=== PATIENT | male | born 1950 | race Caucasian/White ===

== ENCOUNTER 2016-08-12 14:40 | Emergency (ER) | payer BC ==
[2016-08-12 15:03] VITALS: BP 134/79
[2016-08-12] MEDS ORDERED: Levofloxacin/Dextrose 5%-Water 500 MG in Premix Bag 1 BAG IV ONE (15:18)
[2016-08-12] MEDS ORDERED: HYDROmorphone 0.5 MG/0.5 ML Syringe IVPUSH ONE (15:18)
[2016-08-12] MEDS ORDERED: Sodium Chloride 0.9% 10 ML Syringe FLUSH PRN ×2 (15:25→16:46)
[2016-08-12] MEDS ORDERED: HYDROmorphone 1 MG/ML Syringe IVPUSH ONE (15:27)
[2016-08-12] MEDS ORDERED: Sodium Chloride 0.9% 1,000 ML IV SCH (15:30)
[2016-08-12] MEDS ORDERED: Diatrizoate Meglumine/Diatrizoate Sodium 37% 120 ML Bottle PO ONE (16:46)
[2016-08-12] MEDS ORDERED: Iopamidol 612 MG/ML 150 ML Bottle IVPUSH ONE (16:46)
--- NOTE | 2016-08-12 17:03 | EDM.PDOC ---
ED HPI GENERAL MEDICAL PROBLEM - General Chief Complaint: Back Pain or Injury Stated Complaint: BACK PAIN Time Seen by Provider: 08/12/16 15:12 Source of Information: Reports: Patient History Limitations: Reports: No Limitations - History of Present Illness INITIAL COMMENTS - FREE TEXT/NARRATIVE: The patient presents with mid back pain. He has a bulging disk diagnosed 8 years ago. He saw the neurosurgeon Dr Brandon and he recommended conservative treatment and it helped until 1 week ago. He was fixing fence and he slipped and fell backward and hit his mid back. He has pain that is worse with movement. He has no numbness or weakness. He has no bowel or bladder problems. He also has some lower abdominal pain that comes and goes. It is worse on the left side. He has no fever, chills, cough, chest pain, shortness of breath, nausea, vomiting or diarrhea. He has had this abdominal pain before but it has never been worked up before. Onset: Sudden Duration: Week(s): (1) Location: Reports: Abdomen, Back (mid) Quality: Reports: Sharp Severity: Moderate Improves with: Reports: None Worsens with: Reports: Movement Context: Reports: Activity (He was fixing a fence) Associated Symptoms: Reports: No Other Symptoms Middle Back Pain Score (Numeric/FACES): 9 - Related Data Allergies Allergy/AdvReac Type Severity Reaction Status Date / Time No Known Allergies Allergy Verified 04/27/15 15:50 Home Meds: Home Meds Linagliptin [Tradjenta] 5 mg PO DAILY 04/15/14 [History] Olmesartan/Hydrochlorothiazide [Benicar HCT 20-12.5 MG] 1 tab PO DAILY 04/15/14 [History] metFORMIN [Glucophage] 1,000 mg PO DAILY 04/15/14 [History] Cyclobenzaprine [Flexeril] 10 mg PO TID PRN #20 tablet 08/12/16 [Rx] Fluticasone/Vilanterol [Breo Ellipta 100-25 MCG Inhalation Kit] 1 puff IH DAILY 08/12/16 [History] Hydrocodone/Acetaminophen [Hydrocodon-Acetaminophen 5-325] 1 - 2 each PO Q6HR PRN #20 tablet 08/12/16 [Rx] Past Medical History HEENT History: Reports: Sinusitis Cardiovascular History: Reports: Hypertension Respiratory History: Reports: Asthma Gastrointestinal History: Reports: GERD Musculoskeletal History: Reports: Back Pain, Chronic Endocrine/Metabolic History: Reports: Diabetes, Type II - Past Surgical History HEENT Surgical History: Reports: Eye Surgery Social & Family History - Family History Neurological: Reports: CVA Oncologic: Reports: Prostate - Tobacco Use Smoking Status *Q: Current Every Day Smoker Years of Tobacco use: 50 Packs/Tins Daily: 1 - Recreational Drug Use Recreational Drug Use: No ED ROS GENERAL - Review of Systems Review Of Systems: See Below Constitutional: Reports: No Symptoms HEENT: Reports: No Symptoms Respiratory: Reports: No Symptoms Cardiovascular: Reports: No Symptoms Endocrine: Reports: No Symptoms GI/Abdominal: Reports: Abdominal Pain. Denies: Diarrhea, Nausea, Vomiting : Reports: No Symptoms Musculoskeletal: Reports: Back Pain (Mid back) Skin: Reports: No Symptoms ED EXAM,LOWER BACK PAIN/INJURY - Physical Exam Exam: See Below Exam Limited By: No Limitations General Appearance: Alert, No Apparent Distress Ears: Normal External Exam Nose: Normal Inspection Head: Atraumatic, Normocephalic Neck: Normal Inspection Respiratory/Chest: No Respiratory Distress, Lungs Clear, Normal Breath Sounds Cardiovascular: Regular Rate, Rhythm, No Edema, No Murmur GI/Abdominal: Soft, No Organomegaly, No Mass, Tender (Mild to moderate to the left lower abdomen) Back Exam: Other (Mild pain upon palpation to the mid back) Extremities: Normal Inspection Neurological: No Motor/Sensory Deficits, Oriented x 3 Course - Vital Signs Last Recorded V/S: Last Vital Signs Temp 98 F 08/12/16 14:59 Pulse 71 08/12/16 14:59 Resp 16 08/12/16 14:59 BP 134/79 08/12/16 14:59 Pulse Ox 96 08/12/16 14:59 - Orders/Labs/Meds Orders: Active Orders 24 hr Category Date Time Status Peripheral IV Care [RC] . DIRECTED Care 08/12/16 15:26 Active Sodium Chloride 0.9% [Normal Saline] 1,000 ml Med 08/12/16 15:30 Active IV ASDIRECTED Sodium Chloride 0.9% [Saline Flush] Med 08/12/16 15:25 Active 10 ml FLUSH ASDIRECTED PRN Sodium Chloride 0.9% [Saline Flush] Med 08/12/16 16:46 Active 10 ml FLUSH ONETIME PRN Peripheral IV Insertion Adult [OM.PC] Stat Oth 08/12/16 15:25 Ordered Medication Orders Sodium Chloride (Normal Saline) 1,000 mls @ 125 mls/hr IV ASDIRECTED DAAY Last Admin: 08/12/16 15:55 Dose: 125 mls/hr Sodium Chloride (Saline Flush) 10 ml FLUSH ASDIRECTED PRN PRN Reason: Keep Vein Open Last Admin: 08/12/16 15:56 Dose: 10 ml Sodium Chloride (Saline Flush) 10 ml FLUSH ONETIME PRN PRN Reason: IV FLUSH Last Admin: 08/12/16 17:18 Dose: 10 ml Labs: Laboratory Tests 08/12/16 08/12/16 Range/Units 15:50 15:50 WBC 7.87 (4.23-9.07) K/mm3 RBC 5.23 (4.63-6.08) M/mm3 Hgb 15.5 (13.7-17.5) gm/L Hct 46.5 (40.1-51.0) % MCV 88.9 (79.0-92.2) fl MCH 29.6 (25.7-32.2) pg MCHC 33.3 (32.2-35.5) g/dl RDW Std Deviation 45.4 H (35.1-43.9) fL Plt Count 167 (163-337) K/mm3 MPV 9.9 (9.4-12.3) fl Neut % (Auto) 61.4 (34.0-67.9) % Lymph % (Auto) 24.7 (21.8-53.1) % [place] % (Auto) 9.3 (5.3-12.2) % Eos % (Auto) 3.7 (0.8-7.0) Baso % (Auto) 0.4 (0.1-1.2) % Neut # (Auto) 4.84 (1.78-5.38) K/mm3 Lymph # (Auto) 1.94 (1.32-3.57) K/mm3 [place] # (Auto) 0.73 (0.30-0.82) K/mm3 Eos # (Auto) 0.29 (0.04-0.54) K/mm3 Baso # (Auto) 0.03 (0.01-0.08) K/mm3 Sodium 138 (136-145) mEq/L Potassium 4.2 (3.5-5.1) mEq/L Chloride 102 (98-107) mEq/L Carbon Dioxide 27 (21-32) mEq/L Anion Gap 13.2 (5-15) BUN 17 (7-18) mg/dL Creatinine 1.1 (0.7-1.3) mg/dL Est Cr Clr Drug Dosing 74.46 mL/min Estimated GFR (MDRD) > 60 (>60) mL/min BUN/Creatinine Ratio 15.5 (14-18) Glucose 203 H (80-115) mg/dL Calcium 8.6 (8.5-10.1) mg/dL Total Bilirubin 0.5 (0.2-1.0) mg/dL AST 10 L (15-37) U/L ALT 16 (16-63) U/L Alkaline Phosphatase 87 (46-116) U/L Total Protein 7.5 (6.4-8.2) g/dl Albumin 3.8 (3.4-5.0) g/dl Globulin 3.7 gm/dL Albumin/Globulin Ratio 1.0 (1-2) Lipase 90 (73-393) U/L Meds: Medications Generic Name Dose Route Start Last Admin Trade Name Freq PRN Reason Stop Dose Admin Sodium Chloride 1,000 mls @ 125 mls/hr 08/12/16 15:30 08/12/16 15:55 Normal Saline IV 125 mls/hr ASDIRECTED DAYA Administration Sodium Chloride 10 ml 08/12/16 15:25 08/12/16 15:56 Saline Flush FLUSH 10 ml ASDIRECTED PRN Administration Keep Vein Open Sodium Chloride 10 ml 08/12/16 16:46 08/12/16 17:18 Saline Flush FLUSH 10 ml ONETIME PRN Administration IV FLUSH Discontinued Medications Generic Name Dose Route Start Last Admin Trade Name Freq PRN Reason Stop Dose Admin Diatrizoate Meglum/Diatrizoate Sod 90 ml 08/12/16 16:46 08/12/16 17:18 Gastrografin 37% PO 08/12/16 16:47 90 ml ONETIME ONE Administration Hydromorphone HCl 0.5 mg 08/12/16 15:18 08/12/16 15:23 Dilaudid IVPUSH 08/12/16 15:19 Not Given ONETIME ONE Hydromorphone HCl 1 mg 08/12/16 15:27 08/12/16 15:55 Dilaudid IVPUSH 08/12/16 15:28 1 mg ONETIME ONE Administration Levofloxacin/Dextrose 500 mg/ 100 mls @ 100 mls/hr 08/12/16 15:18 08/12/16 15 :23 Premix IV 08/12/16 16:17 Not Given ONETIME ONE Iopamidol 125 ml 08/12/16 16:46 08/12/16 17:17 Isovue-300 (61%) IVPUSH 08/12/16 16:47 125 ml ONETIME ONE Administration - Re-Assessments/Exams Free Text/Narrative Re-Assessment/Exam: 08/12/16 17:02 I ordered an IV NS, dilaudid 1mg IV, labs, CT of abdomen, pelvis, thoracic and lumbar spine. 08/12/16 18:18 His CBC and CMP look good except his blood sugar was a little high at 203. His lipase is normal. The CT of his lumbar and thoracic spine shows numerous compression deformities from T6 to S1. The patient knows about that. The CT of his abdomen and pelvis shows nothing acute. I will give him some flexeril and hydrocodone for his pain. Departure - Departure Time of Disposition: 18:20 Disposition: Home, Self-Care 01 Condition: good Clinical Impression: Abdominal pain Lumbar strain Qualifiers: Encounter type: initial encounter Qualified Code(s): S39.012A - Strain of muscle, fascia and tendon of lower back, initial encounter - Discharge Information Prescriptions: Hydrocodone/Acetaminophen [Hydrocodon-Acetaminophen 5-325] 1 - 2 each PO Q6HR PRN #20 tablet PRN Reason: Pain Cyclobenzaprine [Flexeril] 10 mg PO TID PRN #20 tablet PRN Reason: Pain Referrals: Sigrid Ellis PA [Primary Care Provider] - 1 Week Forms: ED Department Discharge Additional Instructions: Take the hydrocodone and flexeril as needed for pain. Use ice or heat which ever feels better. Follow up with Sigrid Petty in 1 week if not better. Please return if you are worse. - My Orders Last 24 Hours: My Active Orders 08/12/16 15:25 Sodium Chloride 0.9% [Saline Flush] 10 ml FLUSH ASDIRECTED PRN Peripheral IV Insertion Adult [OM.PC] Stat 08/12/16 15:26 Peripheral IV Care [RC] . DIRECTED 08/12/16 15:30 Sodium Chloride 0.9% [Normal Saline] 1,000 ml IV ASDIRECTED 08/12/16 16:46 Sodium Chloride 0.9% [Saline Flush] 10 ml FLUSH ONETIME PRN - Assessment/Plan Last 24 Hours: My Active Orders 08/12/16 15:25 Sodium Chloride 0.9% [Saline Flush] 10 ml FLUSH ASDIRECTED PRN Peripheral IV Insertion Adult [OM.PC] Stat 08/12/16 15:26 Peripheral IV Care [RC] . DIRECTED 08/12/16 15:30 Sodium Chloride 0.9% [Normal Saline] 1,000 ml IV ASDIRECTED 08/12/16 16:46 Sodium Chloride 0.9% [Saline Flush] 10 ml FLUSH ONETIME PRN
--- NOTE | 2016-08-12 17:58 | CT ---
CT thoracic spine Technique: Multiple axial sections through the thoracic spine are obtained. Reconstructed sagittal and coronal images were reviewed. Comparison: Previous CT chest study of 05/26/13 showing the thoracic spine on reconstructed sagittal images. Findings: Multiple compression deformities are seen from T6 inferiorly through S1. Minimal increased endplate concavities are seen within T10 with other findings are stable. No abnormal subluxation is seen. No bony central canal stenosis is seen. No bony neural foraminal stenosis is seen on the parasagittal images. Impression: 1. Numerous compression deformities throughout the lower thoracic and lumbar spine. These are stable with the exception of minimal increase concavity of T10 which is likely old. 2. No abnormal subluxation, bony central canal stenosis or neural foraminal stenosis is seen. Diagnostic code #3
--- NOTE | 2016-08-12 18:02 | CT ---
CT lumbar spine Technique: Multiple axial sections through the lumbar spine were obtained. Comparison: Previous lumbar spine MRI of 01/12/15. Findings: Compression deformities with endplate concavities are seen throughout the lumbar spine. These remain stable from previous exam. No acute fracture is seen. No bony central or bony neural foraminal stenosis is seen. No abnormal subluxation is seen. Impression: 1. Stable compression deformities throughout the lumbar spine. No significant change is identified from current CT lumbar spine to previous MRI lumbar spine of 01/12/15. Diagnostic code #3
--- NOTE | 2016-08-12 18:02 | CT ---
CT abdomen and pelvis Technique: Multiple axial sections were obtained from above the dome of the diaphragm inferiorly through the pubic symphysis. Intravenous and oral contrast was utilized. Comparison: Previous CT abdomen and pelvis study of 05/26/[address] abdomen and pelvis exam of 08/20/12. Findings: Small portion of the visualized lung bases are clear. Liver and spleen appears unremarkable. Right adrenal gland is unremarkable. Left adrenal gland is prominent in size which is a stable finding. Kidneys show symmetric contrast enhancement without hydronephrosis or mass. Small nodule is noted medial to the spleen and anterior to the spleen compatible with accessory splenic tissue which is stable. Previous cholecystectomy is noted. Aorta shows mild atherosclerotic change without aneurysmal dilatation. No retroperitoneal adenopathy is seen. No mesenteric abnormalities are seen. No pelvic mass or adenopathy is seen. Delayed images were obtained through the pelvis which shows contrast within the distal ureters and within the bladder. Appendix is seen which appears normal. No bowel dilatation is seen. No free fluid or inflammatory change is seen. Bone window settings were reviewed which shows numerous compression deformities throughout the spine which appear old. Incidental fat-containing umbilical hernia is noted. Impression: 1. Incidental findings as noted above. Nothing acute is appreciated on CT study of the abdomen and pelvis. Diagnostic code #2
== END 2016-08-12 18:30 | disposition home or self-care (01) ==
LOC: JD.ED 14:40
DX: S39.012A Strain of muscle, fascia and tendon of lower back, initial encounter (principal); I10 Essential (primary) hypertension; K21.9 Gastro-esophageal reflux disease without esophagitis; E11.9 Type 2 diabetes mellitus without complications; R10.32 Left lower quadrant pain; F17.210 Nicotine dependence, cigarettes, uncomplicated; Z79.899 Other long term (current) drug therapy; W01.10XA Fall on same level from slipping, tripping and stumbling with subsequent striking against unspecified object, initial encounter
CPT/HCPCS: 36415; 72128; 72131; 74177; 80053; 83690; 85025; 96361; 96374; 99284; J1170; J7040; J7050; Q9963; Q9967

== ENCOUNTER 2018-03-23 03:40 | Emergency (ER) | payer MEDICARE, BC ==
[2018-03-23 03:50] VITALS: BP 135/76
--- NOTE | 2018-03-23 04:14 | EDM.PDOC ---
ED HPI GENERAL MEDICAL PROBLEM - General Chief Complaint: Lower Extremity Injury/Pain Stated Complaint: RIGHT FOOT INJURY Time Seen by Provider: 03/23/18 03:45 Source of Information: Reports: Patient History Limitations: Reports: No Limitations - History of Present Illness INITIAL COMMENTS - FREE TEXT/NARRATIVE: The patient presents with right foot pain. He says he was walking in the snow yesterday and he stepped on a cow pie and inverted his ankle. He could walk on it after but last night he had more pain. He has no other injury. Onset: Sudden Duration: Day(s): (Yesterday) Location: Reports: Lower Extremity, Right (Foot) Quality: Reports: Sharp Severity: Moderate Improves with: Reports: Immobilization Worsens with: Reports: Movement Associated Symptoms: Reports: No Other Symptoms Right Feet Pain Score (Numeric/FACES): 1 - Related Data Allergies Allergy/AdvReac Type Severity Reaction Status Date / Time No Known Allergies Allergy Verified 04/27/15 15:50 Home Meds: Home Meds Olmesartan/Hydrochlorothiazide [Benicar HCT 20-12.5 MG] 1 tab PO DAILY 04/15/14 [History] metFORMIN [Glucophage] 1,000 mg PO DAILY 04/15/14 [History] Fluticasone/Vilanterol [Breo Ellipta 100-25 MCG Inhalation Kit] 1 puff IH DAILY 08/12/16 [History] Azithromycin [Zithromax] 250 mg PO DAILY 03/23/18 [History] Glimepiride [Amaryl] 1 mg PO DAILY 03/23/18 [History] Past Medical History HEENT History: Reports: Sinusitis Cardiovascular History: Reports: Hypertension Respiratory History: Reports: Asthma Gastrointestinal History: Reports: GERD Musculoskeletal History: Reports: Arthritis, Back Pain, Chronic Endocrine/Metabolic History: Reports: Diabetes, Type II - Past Surgical History HEENT Surgical History: Reports: Eye Surgery Social & Family History - Family History Family Medical History: Noncontributory Neurological: Reports: CVA Oncologic: Reports: Prostate - Tobacco Use Smoking Status *Q: Current Every Day Smoker Years of Tobacco use: 50 Packs/Tins Daily: 1.5 - Caffeine Use Caffeine Use: Reports: Coffee - Recreational Drug Use Recreational Drug Use: No Review of Systems - Review of Systems Review Of Systems: See Below Constitutional: Reports: No Symptoms Eyes: Reports: No Symptoms Ears: Reports: No Symptoms Nose: Reports: No Symptoms Mouth/Throat: Reports: No Symptoms Respiratory: Reports: No Symptoms Cardiovascular: Reports: No Symptoms GI/Abdominal: Reports: No Symptoms Genitourinary: Reports: No Symptoms Musculoskeletal: Reports: Other (Right foot pain) ED EXAM, GENERAL - Physical Exam Exam: See Below Exam Limited By: No Limitations General Appearance: Alert, No Apparent Distress Ears: Normal External Exam Nose: Normal Inspection Head: Atraumatic, Normocephalic Neck: Normal Inspection Respiratory/Chest: No Respiratory Distress Extremities: Other (Mild pain upon palpation to the right foot over the 5th metatarsal and lateral malleolus. Good sensaton and pulses distally.) Course - Vital Signs Last Recorded V/S: Last Vital Signs Temp 97.4 F 03/23/18 03:47 Pulse 84 03/23/18 03:47 Resp 18 03/23/18 03:47 BP 135/76 03/23/18 03:47 Pulse Ox 94 L 03/23/18 03:47 - Orders/Labs/Meds Orders: Active Orders 24 hr Category Date Time Status Ankle Min 3V Rt [CR] Stat Exams 03/23/18 04:22 Ordered Foot Comp Min 3V Rt [CR] Stat Exams 03/23/18 04:07 Stop Req - Re-Assessments/Exams Free Text/Narrative Re-Assessment/Exam: 03/23/18 04:23 The x-ray of his ankle looks good. I will get him a stirrup splint. Departure - Departure Time of Disposition: 16:30 Disposition: Still A Patient 30 Condition: Good Clinical Impression: Right ankle sprain Qualifiers: Encounter type: initial encounter Involved ligament of ankle: unspecified ligament Qualified Code(s): S93.401A - Sprain of unspecified ligament of right ankle, initial encounter - Discharge Information *PRESCRIPTION DRUG MONITORING PROGRAM REVIEWED*: No *COPY OF PRESCRIPTION DRUG MONITORING REPORT IN PATIENT ALEXIS: No Referrals: Max Morris PA-C [Primary Care Provider] - Forms: ED Department Discharge Additional Instructions: Ice your ankle for 15 minutes 3 times per day and elevate your ankle above your heart as much as you can for 2 days to reduce the swelling. Take motrin or tylenol for pain. Wear the splint for comfort. Please return if you are worse or follow up with your doctor. - My Orders Last 24 Hours: My Active Orders 03/23/18 04:07 Foot Comp Min 3V Rt [CR] Stat 03/23/18 04:22 Ankle Min 3V Rt [CR] Stat - Assessment/Plan Last 24 Hours: My Active Orders 03/23/18 04:07 Foot Comp Min 3V Rt [CR] Stat 03/23/18 04:22 Ankle Min 3V Rt [CR] Stat
--- NOTE | 2018-03-27 10:13 | CR ---
Right ankle: Four views of the right ankle were obtained. Comparison: No prior ankle exam. Ankle mortise is symmetric. Very minimal plantar spur is seen. Very minimal spur at the attachment of the Achilles tendon to the calcaneus is noted. Dystrophic calcifications are noted within the soft tissues of the anterior arnett. Small cortical avulsion fracture is noted off the lateral talus. No additional fracture or other abnormality is appreciated. Impression: 1. Small cortical avulsion fracture as noted above. 2. Other incidental findings. Diagnostic code #3 MTDD
== END 2018-03-23 04:30 | disposition home or self-care (01) ==
LOC: JD.ED 03:40
DX: S93.401A Sprain of unspecified ligament of right ankle, initial encounter (principal); F17.210 Nicotine dependence, cigarettes, uncomplicated; Z79.899 Other long term (current) drug therapy; Z79.84 Long term (current) use of oral hypoglycemic drugs; X50.1XXA Overexertion from prolonged static or awkward postures, initial encounter
CPT/HCPCS: 73610-RT; 73630-26-RT; 73630-RT; 99283

== ENCOUNTER 2019-09-22 20:58 | Emergency (ER) | payer MEDICARE, BC ==
[2019-09-22 21:30] VITALS: BP 130/83
--- NOTE | 2019-09-22 22:08 | EDM.PDOC ---
ED HPI GENERAL MEDICAL PROBLEM - General Chief Complaint: Back Pain or Injury Stated Complaint: back pain Time Seen by Provider: 09/22/19 22:01 - History of Present Illness INITIAL COMMENTS - FREE TEXT/NARRATIVE: 68-year-old male presents with right-sided rib pain. Yesterday the patient was baling hay and he had to get behind the tractor to move a lever and rather than walk around the [facility] he reached over the hitch of the [facility] to get to the lever. He felt a pop, but did okay. Today he was baling hay and developed some pain in his right lower chest and along the ribs he spent most the day looking backwards as he was baling hay. He has no new associated shortness of breath no calf tenderness. Right Chest Pain Score (Numeric/FACES): 10 - Related Data Allergies Allergy/AdvReac Type Severity Reaction Status Date / Time No Known Allergies Allergy Verified 04/27/15 15:50 Home Meds: Home Meds Olmesartan/Hydrochlorothiazide [Benicar HCT 20-12.5 MG] 1 tab PO DAILY 04/15/14 [History] metFORMIN [Glucophage] 1,000 mg PO DAILY 04/15/14 [History] Glimepiride [Amaryl] 1 mg PO DAILY 03/23/18 [History] Acetaminophen/HYDROcodone [[place] 325-7.5 MG] 1 - 2 tab PO Q6H PRN #15 tablet 10/17/18 [Rx] Gabapentin [Neurontin] 0 mg PO BEDTIME 10/17/18 [History] Albuterol Sulfate [Proventil Hfa] 2 puff INH ASDIRECTED 09/22/19 [History] Fluticasone/Umeclidin/Vilanter [Trelegy Ellipta 100-62.5-25] 1 puff INH DAILY 09/22/19 [History] Past Medical History HEENT History: Reports: Sinusitis Cardiovascular History: Reports: High Cholesterol, Hypertension Respiratory History: Reports: Asthma, COPD Gastrointestinal History: Reports: GERD Musculoskeletal History: Reports: Arthritis, Back Pain, Chronic Endocrine/Metabolic History: Reports: Diabetes, Type II Oncologic (Cancer) History: Reports: Other (See Below) Other Oncologic History: skin cancer to neck - Past Surgical History HEENT Surgical History: Reports: Eye Surgery GI Surgical History: Reports: Cholecystectomy Musculoskeletal Surgical History: Reports: Arthroscopic Procedure Social & Family History - Family History Family Medical History: Noncontributory Neurological: Reports: CVA Oncologic: Reports: Prostate - Tobacco Use Smoking Status *Q: Current Every Day Smoker Years of Tobacco use: 50 Packs/Tins Daily: 1 - Caffeine Use Caffeine Use: Reports: Coffee, Soda - Recreational Drug Use Recreational Drug Use: No ED ROS GENERAL - Review of Systems Review Of Systems: See Below Constitutional: Reports: No Symptoms, Weight Gain Respiratory: Denies: Shortness of Breath, Cough, Sputum Cardiovascular: Reports: Chest Pain, Other (Pleuritic-like right-sided chest pain) GI/Abdominal: Reports: No Symptoms Musculoskeletal: Reports: Other (Right sided rib pain) Skin: Reports: No Symptoms Neurological: Reports: No Symptoms ED EXAM,LOWER BACK PAIN/INJURY - Physical Exam Exam: See Below Exam Limited By: No Limitations General Appearance: Other (Lots of discomfort when trying to change positions) Head: Atraumatic, Normocephalic Neck: Normal Inspection, Supple, Non-Tender, Full Range of Motion. No: Lymphadenopathy (L), Lymphadenopathy (R) Respiratory/Chest: Other (Breath sounds are slightly diminished on the left albeit his pain is on the right. Palpation of the right chest is exquisitely tender lateral and inferior) Cardiovascular: Regular Rate, Rhythm, No Edema, No Murmur GI/Abdominal: Normal Bowel Sounds, Soft, Non-Tender EKG INTERPRETATION EKG Date: 09/22/19 Rhythm: Other (Sinus dysrhythmia) [place]: Normal P-Wave: Present QRS: Other (Borderline intraventricular conduction delay) ST-T: Normal QT: Normal Comparison: No Change (Change from EKG of April 2015) EKG Interpretation Comments: Borderline EKG Course - Vital Signs Last Recorded V/S: Last Vital Signs Temp 36.3 C 09/22/19 21:29 Pulse 63 09/22/19 23:55 Resp 22 H 09/22/19 23:55 BP 130/83 09/22/19 21:29 Pulse Ox 92 L 09/22/19 23:55 - Orders/Labs/Meds Orders: Active Orders 24 hr Category Date Time Status EKG Documentation Completion [RC] STAT Care 09/22/19 22:09 Active Chest 2V [CR] Stat Exams 09/22/19 22:08 Taken Labs: Laboratory Tests 06/09/22/19 09/22/19 Range/Units 22:25 22:25 22:25 WBC 7.91 (4.23-9.07) K/mm3 RBC 5.09 (4.63-6.08) M/mm3 Hgb 15 (13.7-17.5) gm/dl Hct 45.9 (40.1-51.0) % MCV 90.2 (79.0-92.2) fl MCH 29.5 (25.7-32.2) pg MCHC 32.7 (32.2-35.5) g/dl RDW Std Deviation 47.0 H (35.1-43.9) fL Plt Count 175 (163-337) K/mm3 MPV 10.2 (9.4-12.3) fl Neut % (Auto) 59.2 (34.0-67.9) % Lymph % (Auto) 27.8 (21.8-53.1) % [place] % (Auto) 8.5 (5.3-12.2) % Eos % (Auto) 3.8 (0.8-7.0) Baso % (Auto) 0.3 (0.1-1.2) % Neut # (Auto) 4.69 (1.78-5.38) K/mm3 Lymph # (Auto) 2.20 (1.32-3.57) K/mm3 [place] # (Auto) 0.67 (0.30-0.82) K/mm3 Eos # (Auto) 0.30 (0.04-0.54) K/mm3 Baso # (Auto) 0.02 (0.01-0.08) K/mm3 D-Dimer, Quantitative 0.42 (0.19-0.50) mg/L Sodium 140 (136-145) mEq/L Potassium 4.1 (3.5-5.1) mEq/L Chloride 104 (98-107) mEq/L Carbon Dioxide 28 (21-32) mEq/L Anion Gap 12.1 (5-15) BUN 22 H (7-18) mg/dL Creatinine 1.3 (0.7-1.3) mg/dL Est Cr Clr Drug Dosing 60.52 mL/min Estimated GFR (MDRD) 55 (>60) mL/min BUN/Creatinine Ratio 16.9 (14-18) Glucose 152 H (80-115) mg/dL Calcium 8.5 (8.5-10.1) mg/dL Total Bilirubin 0.5 (0.2-1.0) mg/dL AST 10 L (15-37) U/L ALT 15 L (16-63) U/L Alkaline Phosphatase 74 (46-116) U/L Troponin I < 0.017 (0.00-0.056) ng/mL Total Protein 7.2 (6.4-8.2) g/dl Albumin 3.6 (3.4-5.0) g/dl Globulin 3.6 gm/dL Albumin/Globulin Ratio 1.0 (1-2) Meds: Medications Discontinued Medications Generic Name Dose Route Start Last Admin Trade Name Faviola PRN Reason Stop Dose Admin Fentanyl 50 mcg 09/22/19 22:55 09/22/19 23:14 Sublimaze IVPUSH 09/22/19 22:56 50 mcg ONETIME ONE Administration - Re-Assessments/Exams Free Text/Narrative Re-Assessment/Exam: 09/22/19 23:45 Lab evaluation is unrevealing chest x-ray shows no acute changes. He probably pulled something in his chest wall when he reached for that lever. He is not a good candidate to be on nonsteroidal anti-inflammatory medications. The patient has done okay on hydrocodone in the past we will give him #20 out of the machine in the waiting room 1 every 6-8 hours as needed Departure - Departure Time of Disposition: 23:47 Disposition: Home, Self-Care 01 Clinical Impression: Chest wall muscle strain - Discharge Information Instructions: Muscle Strain, [id number] Referrals: Sammi Martinez, RIBB[facility] CUTTER [Primary Care Provider] - Forms: ED Department Discharge Additional Instructions: Return to the emergency room with any questions problems or worsening symptoms. Drink plenty of fluids. I have given you a prescription for the machine out in the waiting room they will dispense hydrocodone. #20. Take 1 every 6-8 hours as needed for pain. 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 Follow-up with your regular healthcare provider in 1 week if needed. Sepsis Event Note (ED) - Evaluation Sepsis Screening Result: No Definite Risk - Focused Exam Vital Signs: Vital Signs Temp Pulse Resp BP Pulse Ox 09/22/19 23:55 63 22 H 92 L 09/22/19 21:29 36.3 C 67 20 130/83 92 L - My Orders Last 24 Hours: My Active Orders 09/22/19 22:08 Chest 2V [CR] Stat 09/22/19 22:09 EKG Documentation Completion [RC] STAT - Assessment/Plan Last 24 Hours: My Active Orders 09/22/19 22:08 Chest 2V [CR] Stat 09/22/19 22:09 EKG Documentation Completion [RC] STAT
[2019-09-22] MEDS ORDERED: fentaNYL 100 MCG/2 ML SDV IVPUSH ONE (22:55)
[2019-09-23 00:10] VITALS: PULSE 63
--- NOTE | 2019-09-23 06:41 | CR ---
Chest: 2 views of the chest were obtained. Comparison: Prior chest x-ray of 10/17/18. Heart size is normal. Tortuous thoracic aorta is seen. Lungs are clear no acute parenchymal change. Bony structures shows mild compression deformities within the mid thoracic spine which are stable. Other compression deformities within the lower thoracic spine are noted which are also felt stable. Impression: 1. Findings as noted above. 2. No acute intrathoracic process is appreciated when compared to previous exam. Diagnostic code #2 This report was dictated in MDT
== END 2019-09-23 00:02 | disposition home or self-care (01) ==
LOC: JD.ED 20:58
DX: S29.011A Strain of muscle and tendon of front wall of thorax, initial encounter (principal); I49.9 Cardiac arrhythmia, unspecified; I10 Essential (primary) hypertension; J44.9 Chronic obstructive pulmonary disease, unspecified; E11.9 Type 2 diabetes mellitus without complications; F17.210 Nicotine dependence, cigarettes, uncomplicated; Z79.84 Long term (current) use of oral hypoglycemic drugs; Z79.899 Other long term (current) drug therapy; X58.XXXA Exposure to other specified factors, initial encounter
CPT/HCPCS: 36415; 71046; 80053; 84484; 85025; 85379; 93005; 96374; 99284; J3010

== ENCOUNTER 2020-02-23 10:37 | Emergency (ER) | payer MEDICARE, BC ==
[2020-02-23 11:11] VITALS: BP 104/77; PULSE 78
--- NOTE | 2020-02-23 11:13 | EDM.PDOC ---
ED HPI GENERAL MEDICAL PROBLEM - General Chief Complaint: Neurological Problem Stated Complaint: NUMBNESS TO RT SIDE OF FACE,EYE DROOPING X 3 DAYS Time Seen by Provider: 02/23/20 10:55 Source of Information: Reports: Patient History Limitations: Reports: No Limitations - History of Present Illness INITIAL COMMENTS - FREE TEXT/NARRATIVE: 69-year-old male presents to the ED with left hemifacial numbness and tingling with inability to close his left eye completely and appreciates that his lips on the left side of his face are not working properly. He will intermittently bite his lower lip or inside cheek the last couple of days. He believes symptoms started gradually on Sunday, February 19. Appreciated that he was unable to close his eye yesterday. Appreciates numbness left lip when he tries to hold a cigarette it will not work on the left side. It works normally on the right side. He appreciates no weakness in his upper extremities and is able to walk okay. He does have an increased tinnitus in both sides of his head at this time. 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 Denies any headache or sharp stabbing scalp pain. Of note the patient is a type II diabetic does not check his sugars often. He has hypertension. He has COPD with dyspnea on minimal exertion. Continues to smoke a pack of cigarettes daily. Chronic cough occasionally productive of brown phlegm. Onset: Gradual Onset Date: 02/20/20 (Thinks he felt a little numbness left hemiface Sunday p.m.) Duration: Day(s):, Getting Worse Location: Reports: Face (Left hemifacial weakness numbness and tingling and inability to close his left eye x2 days) Quality: Reports: Other Severity: Moderate (Left hemifacial weakness) Improves with: Reports: None Worsens with: Reports: None Context: Reports: Other (Spontaneous occurrence over the last 48). Denies: Activity, Exercise, Lifting, Sick Contact, Trauma Associated Symptoms: Reports: Cough, cough w sputum (On a cough due to chronic bronchitis from cigarette smoking), Malaise, Shortness of Breath, Weakness (Left hemifacial muscles particularly periocular and periorbital.). Denies: Confusion ( to 72 hours.), Chest Pain, Diaphoresis, Fever/Chills, Headaches, Loss of Appetite, Nausea/Vomiting (Chronically and worse with minimal exertion.), Seizure, Syncope Treatments CASHIER RECEPTIONIST: Reports: Other (see below) (None.) - Related Data Allergies Allergy/AdvReac Type Severity Reaction Status Date / Time No Known Allergies Allergy Verified 04/27/15 15:50 Home Meds: Home Meds Olmesartan/Hydrochlorothiazide [Benicar HCT 20-12.5 MG] 1 tab PO DAILY 04/15/14 [History] metFORMIN [Glucophage] 1,000 mg PO DAILY 04/15/14 [History] Glimepiride [Amaryl] 1 mg PO DAILY 03/23/18 [History] Acetaminophen/HYDROcodone [[place] 325-7.5 MG] 1 - 2 tab PO Q6H PRN #15 tablet 10/17/18 [Rx] Gabapentin [Neurontin] 0 mg PO BEDTIME 10/17/18 [History] Albuterol Sulfate [Proventil Hfa] 2 puff INH ASDIRECTED 09/22/19 [History] Fluticasone/Umeclidin/Vilanter [Trelegy Ellipta 100-62.5-25] 1 puff INH DAILY 09/22/19 [History] Mineral Oil/Petrolatum Oint [Lacri-Lube S.O.P Oint] 3.5 gm .XX BEDTIME #1 tube 02/23/20 [Rx] predniSONE [Prednisone] 20 mg PO BID #6 tablet 02/23/20 [Rx] valACYclovir [Valtrex] 1,000 mg PO TID #21 tab 02/23/20 [Rx] Past Medical History HEENT History: Reports: Sinusitis Cardiovascular History: Reports: High Cholesterol, Hypertension Respiratory History: Reports: Asthma, COPD Gastrointestinal History: Reports: GERD Musculoskeletal History: Reports: Arthritis, Back Pain, Chronic Neurological History: Reports: Neuropathy, Peripheral (Quite bad in both lower extremities up to mid tib-fib. Reports he is on gabapentin but is no longer helping. He is not sure of the dose that he is taking.) Endocrine/Metabolic History: Reports: Diabetes, Type II (Patient takes Metformin and glyburide for type 2 diabetes.) Oncologic (Cancer) History: Reports: Other (See Below) Other Oncologic History: skin cancer to neck - Past Surgical History HEENT Surgical History: Reports: Eye Surgery GI Surgical History: Reports: Cholecystectomy Musculoskeletal Surgical History: Reports: Arthroscopic Procedure Social & Family History - Family History Family Medical History: No Pertinent Family History Neurological: Reports: CVA Oncologic: Reports: Prostate - Caffeine Use Caffeine Use: Reports: Coffee, Soda - Living Situation & Occupation Living situation: Reports: Occupation: Employed (Self-employed [employer].) ED ROS GENERAL - Review of Systems Review Of Systems: See Below Constitutional: Reports: Malaise, Weakness, Fatigue. Denies: Fever, Chills, Decreased Appetite, Weight Loss HEENT: Reports: Glasses, Other (Left eye weakness with inability to close left eye completely) Respiratory: Reports: Shortness of Breath ( developing over the last 48 hours), Wheezing, Cough (Productive cough), Sputum ( chronic bronchitis from cigarette smoking. Occasional brown). Denies: Pleuritic Chest Pain, Hemoptysis ( sputum.) Cardiovascular: Reports: Blood Pressure Problem, Dyspnea on Exertion, Edema. Denies: Claudication, Lightheadedness, Orthopnea, Palpitations (Chronically due to COPD.) Endocrine: Reports: Fatigue (Mild both lower extremities), Other (Known type II diabetic.) GI/Abdominal: Denies: Abdominal Pain, Anorexia, Decreased Appetite : Reports: Frequency, Other (Nocturia usually x3. Known BPH.) Musculoskeletal: Reports: Neck Pain, Shoulder Pain, Back Pain, Joint Pain Skin: Reports: No Symptoms (Knees and hips as well.) Neurological: Reports: Paresthesia (Chronic paresthesias both lower extremities from diabetes and peripheral vascular disease.) Psychiatric: Reports: No Symptoms Hematologic/Lymphatic: Reports: No Symptoms Immunologic: Reports: No Symptoms ED EXAM, NEURO - Physical Exam Exam: See Below Exam Limited By: No Limitations General Appearance: Alert, WD/WN, Anxious, Mild Distress, Other (Does have left hemifacial weakness and inability to close his left eye. He does have ptosis of his left upper eyelid. Temperature is 36.7 with a heart rate of 78 in sinus respiratory of 16 BP 104/77 O2 sats 93% room air.) Eye Exam: Bilateral Eye: PERRL (Normal. No evidence of intraocular muscle palsy.), Other (Patient has ptosis of his left upper eyelid and inability to close the left eye completely.) Ears: Normal TMs Throat/Mouth: Other (Ovular is in the midline. Diffuse erythema of the) Head Exam: Atraumatic ( soft palate and posterior oropharynx from cigarette smoking. No signs of infection.), Normocephalic Neck: Limited Range of Motion (But is with lateral rotation. Loss of 5 degrees flexion and extension). No: Supple, Full Range of Motion ( bilaterally.), Car otid Bruit, Lymphadenopathy (L), Lymphadenopathy (R), Thyromegaly Respiratory/Chest: Decreased Breath Sounds (Bilateral expiratory wheezes. Decreased air entry to the lower 50% of lung graham bilaterally.), Wheezing. No: Lungs Clear, Normal Breath Sounds ( Known to have COPD.), Chest Non-Tender Cardiovascular: Regular Rate, Rhythm, No Gallop, No Murmur, No Rub, Other (Patient has). No: Normal Peripheral Pulses GI/Abdominal: Normal Bowel Sounds ( poor pulses to both feet complete with peripheral vascular disease.), Soft, Non-Tender, No Organomegaly, No Mass, Pelvis Stable, Other (Moderately obese. Abdominal girth limits ability to palpate solid organs. No organomegaly noted.) Neurological: Alert, Normal Mood/Affect, Normal Dorsiflexion, Oriented x 3, Other (Patient has left facial weakness and numbness particular the facial cheek. He has inability to close his left eye completely and face pulls to the right on attempt to smile. Patient has no deficit in motor power tone in upper or lower extremities. No pronator drift. Normal [id number] evaluation normal [id number] evaluation. Normal rapid alternating movements.). No: CN II-XII Intact, Normal Gait, Normal Reflexes DTR: 0: Patella (R), Patella (L), Achilles (R), Achilles (L), 1+: Bicep (R), Bicep (L) Back Exam: Normal Inspection, Full Range of Motion. No: CVA Tenderness (L), CVA Tenderness (R) Extremities: Normal Inspection, Pedal Edema (Patient has 1-2+ pitting edema both lower extremities.) Psychiatric: Flat Affect Skin Exam: Warm, Dry, Intact, Normal Color, No Rash Course - Vital Signs Last Recorded V/S: Last Vital Signs Temp 36.7 C 02/23/20 11:05 Pulse 78 02/23/20 11:05 Resp 16 02/23/20 11:05 BP 104/77 02/23/20 11:05 Pulse Ox 93 L 02/23/20 11:05 - Radiology Interpretation Free Text/Narrative:: 69-year-old male presents to the ED with obvious left facial hemiparesis with particular inability to close his left eye and left sided ptosis. Face post to the right on attempt to smile. He has no other cranial nerve deficit and remainder of his neuro exam is completely normal other than chronic peripheral neuropathy both lower extremities associate with peripheral vascular disease clinically. He has a chronic neuropathy in both lower extremities which is worse as of late not responding to current dose of gabapentin. 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 Likely started 2-1/2 days ago. He is a type II diabetic putting him at high risk of eminent left 7th nerve palsy. Advised follow-up with his primary care provider in 7 days time Departure - Departure Time of Disposition: 11:05 Disposition: Home, Self-Care 01 Condition: Fair Clinical Impression: Ingram's palsy, Hypertension Type 2 diabetes mellitus Qualifiers: Diabetes mellitus group home insulin use: without manager long term care use Diabetes mellitus complication status: with circulatory complication - Discharge Information *PRESCRIPTION DRUG MONITORING PROGRAM REVIEWED*: Not Applicable *COPY OF PRESCRIPTION DRUG MONITORING REPORT IN PATIENT ALEXIS: Not Applicable Prescriptions: Mineral Oil/Petrolatum Oint [Lacri-Lube S.O.P Oint] 3.5 gm .XX BEDTIME #1 tube predniSONE [Prednisone] 20 mg PO BID #6 tablet valACYclovir [Valtrex] 1,000 mg PO TID #21 tab Instructions: Ingram Palsy, Adult Referrals: Sammi Martinez [employer] G[employer] PRESS OPERATOR [Primary Care Provider] - Forms: ED Department Discharge Additional Instructions: Evaluation in the emergency room today in regards to development of left hemifacial weakness of the muscles that supply opening closer of your left eye and the muscles around the mouth which controlled lip movement. Examination does not reveal any other signs of a stroke. You have a 7th cranial nerve palsy which is called Ingram's palsy. This is almost always caused by a viral infection usually herpes 6 or herpes 9 virus. Treatment is antiviral medication valacy clovir 1 g 3 times daily for the next week with steroid prednisone 20 mg twice daily morning and supper for the next 7 days to reduce swelling around the 7th cranial nerve. The most important thing is to keep the left eye moist when you cannot close it all the way. Suggest artificial tears 2 drops 3 times a day in the left eye. Left eye will have to be padded closed with an eyepad overnight until you regain function of the muscles around the eye and can close it normally. Place a small string of Lacri-Lube ointment along the inner lower eyelid every night at bedtime to help keep the left eye lubricated overnight to prevent drying out of the cornea which if occurs can cause an infection and loss of eyesight. Suggest follow-up with your personal care physician in 1 week time for reevaluation of Ingram's palsy. Blood sugars will become elevated while taking prednisone tablets but will return to baseline 2 to 3 days after you are finished the prednisone. Check on dose of gabapentin that you are taking at bedtime for neuropathy in your feet. If you are currently taking 100 mg tablet you may increase this to a 300 mg tablet at bedtime. Currently on a 300 mg tablet may take 600 mg at bedtime. Should discuss this with your personal care physician. Sepsis Event Note (ED) - Focused Exam Vital Signs: Vital Signs Temp Pulse Resp BP Pulse Ox 02/23/20 11:05 36.7 C 78 16 104/77 93 L
== END 2020-02-23 11:45 | disposition home or self-care (01) ==
LOC: JD.ED 10:37
DX: G51.0 Bell's palsy (principal); I10 Essential (primary) hypertension; J44.9 Chronic obstructive pulmonary disease, unspecified; E11.42 Type 2 diabetes mellitus with diabetic polyneuropathy; Z79.84 Long term (current) use of oral hypoglycemic drugs; Z79.899 Other long term (current) drug therapy
CPT/HCPCS: 99283; 99284

== ENCOUNTER 2020-03-06 23:06 | Emergency (ER) | payer MEDICARE, BC ==
[2020-03-06] MEDS ORDERED: Alum Hydrox/Mag Hydrox/Simeth 30 ML, Lidocaine 2% 15 ML PO STA ×2 (23:44)
--- NOTE | 2020-03-06 23:49 | EDM.PDOC ---
ED HPI GENERAL MEDICAL PROBLEM - General Chief Complaint: Chest Pain Stated Complaint: chest pains since 10pm Time Seen by Provider: 03/06/20 23:29 Source of Information: Reports: Patient History Limitations: Reports: No Limitations - History of Present Illness INITIAL COMMENTS - FREE TEXT/NARRATIVE: Mr. Blanco is a pleasant 69-year-old gentleman who now presents to the ED with a complaint of lower retrosternal chest pain, crampy in character, a pain, not a discomfort, lungs with bilateral mandible soreness and a headache felt all over his head, that all developed around 22:00 tonight while he was lying in bed. He has not identified any modifiers to his symptoms, although he states that they have since improved significantly - he states that he now has only mild chest discomfort. He states that he took some Rolaids that he does not feel helped. He states that he chronically has dyspnea due to COPD, that is unchanged. No associated nausea, diaphoresis, or sense of impending doom. The patient states that he has had similar symptoms 3 or 4 times over the past several years. He states that prior ED work-ups were negative, and that he was told that his symptoms were due to GERD. He states that he previously was on a daily PPI, but that he discontinued it about 2 years ago, because he was feeling fine. Here in the ED, the patient is found to be hemodynamically stable, afebrile, saturating 92% on room air. Prior to tonight, the patient denies having a recent fever, chills, sore throat, ear pain, nasal or sinus congestion, cough, dyspnea, chest pain, palpitations, nausea, vomiting, constipation, diarrhea, abdominal pain, urinary symptoms, recent weight gain or weight loss, recent bloody bowel movements or black bowel movements, recent joint aches, headaches, or rashes. The patient's PCP is Sammi Martinez NP. He has not received an influenza vaccine this season, and [facility]. Middle Chest Pain Score (Numeric/FACES): 5 - Related Data Allergies Allergy/AdvReac Type Severity Reaction Status Date / Time No Known Allergies Allergy Verified 03/06/20 23:16 Home Meds: Home Meds Olmesartan/Hydrochlorothiazide [Benicar HCT 20-12.5 MG] 1 tab PO DAILY 04/15/14 [History] metFORMIN [Glucophage] 1,000 mg PO DAILY 04/15/14 [History] Glimepiride [Amaryl] 1 mg PO DAILY 03/23/18 [History] Gabapentin [Neurontin] 0 mg PO BEDTIME 10/17/18 [History] Albuterol Sulfate [Proventil Hfa] 2 puff INH ASDIRECTED 09/22/19 [History] Fluticasone/Umeclidin/Vilanter [Trelegy Ellipta 100-62.5-25] 1 puff INH DAILY 09/22/19 [History] Rosuvastatin [Crestor] 10 mg PO BEDTIME 03/06/20 [History] Past Medical History Cardiovascular History: Reports: High Cholesterol, Hypertension Respiratory History: Reports: Asthma (suspected, not tested), COPD (suspected, not tested) Gastrointestinal History: Reports: GERD (untreated) Musculoskeletal History: Reports: Arthritis Neurological History: Reports: Neuropathy, Diabetic Endocrine/Metabolic History: Reports: Diabetes, Type II Oncologic (Cancer) History: Reports: Other (See Below) (Skin cancer, left neck, s/p excision) - Past Surgical History HEENT Surgical History: Reports: Tonsillectomy GI Surgical History: Reports: Cholecystectomy (around 2017) Musculoskeletal Surgical History: Reports: Arthroscopic Procedure (right knee) Oncologic Surgical History: Reports: Other (See Below) (Skin cancer excised from left neck) Social & Family History - Tobacco Use Tobacco Use Status *Q: Current Every Day Tobacco User Years of Tobacco use: 51 Packs/Tins Daily: 1 - Caffeine Use Caffeine Use: Reports: None - Alcohol Use Alcohol Use History: Yes Alcohol Use Frequency: Rarely - Recreational Drug Use Recreational Drug Use: No - Living Situation & Occupation Living situation: Reports: , with Spouse, with Family (1 kid) Occupation: Employed (Part-time [employer]) ED ROS GENERAL - Review of Systems Review Of Systems: Comprehensive ROS is negative, except as noted in HPI. ED EXAM, GENERAL - Physical Exam Exam: See Below Exam Limited By: No Limitations General Appearance: Alert, WD/WN, No Apparent Distress Eye Exam: Bilateral Eye: EOMI, Normal Inspection Ears: Normal External Exam, Hearing Grossly Normal Nose: Normal Inspection Throat/Mouth: Normal Inspection, Normal Lips, Normal Voice, No Airway Compromise Head: Atraumatic, Normocephalic Neck: Normal Inspection, Full Range of Motion Respiratory/Chest: No Respiratory Distress, Lungs Clear, Normal Breath Sounds, No Accessory Muscle Use, Chest Non-Tender (including the sternum) Cardiovascular: Normal Peripheral Pulses, Regular Rate, Rhythm, No Gallop, No JVD, No Murmur, No Rub Peripheral Pulses: 3+: Radial (L), Radial (R) GI/Abdominal: Normal Bowel Sounds, Soft, Non-Tender (including the epigastrium), No Organomegaly, No Distention, No Abnormal Bruit, No Mass Back Exam: Normal Inspection, Full Range of Motion, NT Extremities: Normal Inspection, Normal Range of Motion, No Pedal Edema, Normal Capillary Refill Neurological: Alert, Oriented, Normal Cognition, No Motor/Sensory Deficits Psychiatric: Normal Affect Skin Exam: Warm, Dry, Intact, Normal Color, No Rash #1 Interpretation EKG Date: 03/06/20 Time: 23:18 Rhythm: NSR Rate (Beats/Min): 70 [place]: Normal P-Wave: Present QRS: Normal ST-T: Normal QT: Normal Comparison: No Change (09/22/2019) Course - Vital Signs Last Recorded V/S: Last Vital Signs Temp 36.4 C 03/06/20 23:14 Pulse 71 03/06/20 23:14 Resp 18 03/06/20 23:14 BP 131/80 03/06/20 23:14 Pulse Ox 92 L 03/06/20 23:14 - Orders/Labs/Meds Orders: Active Orders 24 hr Category Date Time Status EKG 12 Lead [EKG Documentation Completion] [RC] STAT Care 03/06/20 23:19 Active Chest 2V [CR] Stat Exams 03/06/20 23:44 Ordered Labs: Laboratory Tests 03/06/20 03/06/20 Range/Units 23:20 23:20 WBC 10.27 H (4.23-9.07) K/mm3 RBC 5.28 (4.63-6.08) M/mm3 Hgb 15.6 (13.7-17.5) gm/dl Hct 47.7 (40.1-51.0) % MCV 90.3 (79.0-92.2) fl MCH 29.5 (25.7-32.2) pg MCHC 32.7 (32.2-35.5) g/dl RDW Std Deviation 48.3 H (35.1-43.9) fL Plt Count 187 (163-337) K/mm3 MPV 10.2 (9.4-12.3) fl Neutrophils % (Manual) 65 H (40-60) % Band Neutrophils % 0 (0-10) % Lymphocytes % (Manual) 22 (20-40) % Atypical Lymphs % 0 % Monocytes % (Manual) 10 (2-10) % Eosinophils % (Manual) 3 (0.8-7.0) % Basophils % (Manual) 0 L (0.2-1.2) Platelet Estimate Adequate RBC Morph Comment Normal Sodium 136 (136-145) mEq/L Potassium 4.3 (3.5-5.1) mEq/L Chloride 101 (98-107) mEq/L Carbon Dioxide 30 (21-32) mEq/L Anion Gap 9.3 (5-15) BUN 21 H (7-18) mg/dL Creatinine 1.6 H (0.7-1.3) mg/dL Est Cr Clr Drug Dosing 48.50 mL/min Estimated GFR (MDRD) 43 (>60) mL/min BUN/Creatinine Ratio 13.1 L (14-18) Glucose 154 H (80-115) mg/dL Calcium 9.2 (8.5-10.1) mg/dL Magnesium 2.3 (1.8-2.4) mg/dl Total Bilirubin 0.5 (0.2-1.0) mg/dL AST 14 L (15-37) U/L ALT 18 (16-63) U/L Alkaline Phosphatase 87 (46-116) U/L Troponin I < 0.017 (0.00-0.056) ng/mL Total Protein 7.3 (6.4-8.2) g/dl Albumin 3.5 (3.4-5.0) g/dl Globulin 3.8 gm/dL Albumin/Globulin Ratio 0.9 L (1-2) Meds: Medications Discontinued Medications Generic Name Dose Route Start Last Admin Trade Name Freq PRN Reason Stop Dose Admin Al Hydroxide/Mg Hydroxide 30 0 ml 03/06/20 23:44 03/06/20 23:51 ml/ Lidocaine HCl 15 ml PO 03/06/20 23:45 45 ml ONETIME STA Administration - Re-Assessments/Exams Free Text/Narrative Re-Assessment/Exam: 03/06/20 23:46 Like previous presentations with the same symptoms, hansel's symptoms are likely due to GERD, therefore I have ordered a GI cocktail to see if that improves his current minor symptoms. His ECG, obtained at triage, is unremarkable. I have ordered a work-up that includes several blood tests and a chest x-ray. 03/07/20 00:27 The patient's CBC is remarkable for WBC count slightly elevated at 10.27, but with 0% bandemia, and the remainder of his CBC is unremarkable. His CMP is remarkable for a BUN/Cr elevated at 21/1.6, and a blood glucose elevated at 154, with the remainder of his CMP being unremarkable. His magnesium level is within normal limits at 2.3. His troponin is undetectably low. His chest x-ray has not yet been obtained. Reviewing prior labs, I see that his BUN/Cr was within normal limits at 14/1.2 on 10/21/2019. 03/07/20 01:36 Two-view chest radiograph appears to be grossly normal. The cardiac silhouette is within normal limits. No pulmonary vascular congestion. No pleural effusions. No focal infiltrate. No pneumothorax. Formal read per the Radiologist pending. 03/07/20 01:39 Test results discussed with the patient. He states that the last of his pain resolved after he drank the GI cocktail. It has not recurred. I suspect that his pain, like previous presentations, is due to GERD, and I am therefore ordering 40 mg of IV famotidine with the recommendation that he begin taking 1 tablet of famotidine twice a day, going forward. Work-up finds that he has renal insufficiency, new from since 10/21/2019. I explained that it may be due to his diabetes, although there are other possible causes. I would like him to follow-up with his PCP in this regard. Departure - Departure Time of Disposition: 01:41 Disposition: Home, Self-Care 01 Clinical Impression: Renal insufficiency, GERD (gastroesophageal reflux disease) - Discharge Information *PRESCRIPTION DRUG MONITORING PROGRAM REVIEWED*: Not Applicable *COPY OF PRESCRIPTION DRUG MONITORING REPORT IN PATIENT ALEXIS: Not Applicable Referrals: Sammi Martinez, DECONTAMINATION WORKER [Primary Care Provider] - Forms: ED Department Discharge Additional Instructions: You were seen in the emergency room after developing lower chest pain, along with a sore jaw and headache. Work-up in the ER included several blood tests, a chest x-ray, and an ECG. Your blood work found your kidney function to be paired. It was normal on 10/21/2019. The remainder of your work-up was unremarkable. You have not suffered a heart attack. Your chest pain resolved completely after you drink a GI cocktail. Based on your history, physical exam, and ER tests, the cause of your symptoms was due to untreated GERD. We recommend that you take 1 tablet of [id number] famotidine (Pepcid) twice a day, indefinitely. We recommend that you follow-up with your PCP, Monika Martinez NP, for further evaluation of your impaired kidney function. If any other problems, please do not hesitate to return to the ER. Sepsis Event Note (ED) - Evaluation Sepsis Screening Result: No Definite Risk - Focused Exam Vital Signs: Vital Signs Temp Pulse Resp BP Pulse Ox 03/06/20 23:14 36.4 C 71 18 131/80 92 L - My Orders Last 24 Hours: My Active Orders 03/06/20 23:19 EKG 12 Lead [EKG Documentation Completion] [RC] STAT 03/06/20 23:44 Chest 2V [CR] Stat - Assessment/Plan Last 24 Hours: My Active Orders 03/06/20 23:19 EKG 12 Lead [EKG Documentation Completion] [RC] STAT 03/06/20 23:44 Chest 2V [CR] Stat
[2020-03-07] MEDS ORDERED: Famotidine 20 MG/2 ML SDV IVPUSH STA (01:39)
[2020-03-07 02:04] VITALS: BP 134/80; PULSE 79
--- NOTE | 2020-03-08 10:56 | CR ---
Chest: 2 views of the chest were obtained. Comparison: No prior chest imaging is available. Heart size is normal. Tortuous thoracic aorta is seen. Very small nodule is noted within left base of the left hemidiaphragm. Lungs otherwise are clear with no acute parenchymal change. Multiple compression deformities are seen within the spine. These involve both thoracic and lumbar spine. No abnormal subluxation is seen. Impression: 1. Small nodule within the left lung base most likely related to overlapping lung markings. 2. Compression deformities within the thoracic and lumbar spine. These are most likely old but please correlate with the patient's symptoms. 3. Nothing acute is otherwise seen. Diagnostic code #3 I agree with preliminary report from [facility], finalized on 03/07/20, 2:39 AM CENTERLESS GRINDER OPERATOR DANELLE
== END 2020-03-07 02:05 | disposition home or self-care (01) ==
LOC: JD.ED 23:06
DX: K21.9 Gastro-esophageal reflux disease without esophagitis (principal); N28.9 Disorder of kidney and ureter, unspecified; I10 Essential (primary) hypertension; E78.00 Pure hypercholesterolemia, unspecified; E11.40 Type 2 diabetes mellitus with diabetic neuropathy, unspecified; F17.210 Nicotine dependence, cigarettes, uncomplicated; Z79.84 Long term (current) use of oral hypoglycemic drugs; Z90.49 Acquired absence of other specified parts of digestive tract; Z79.899 Other long term (current) drug therapy
CPT/HCPCS: 36415; 71046; 80053; 83735; 84484; 85007; 85027; 93005; 96374; 99285; A9270; J3490; 93010; 99284

== ENCOUNTER 2021-09-18 01:43 | Emergency (ER) | payer MEDICARE, BC ==
[2021-09-18 02:07] VITALS: BP 121/80; PULSE 71
[2021-09-18] MEDS ORDERED: Acetaminophen/HYDROcodone 325-5 MG Tab PO ONE (02:55)
[2021-09-18] MEDS ORDERED: Orphenadrine 100 MG Tab.ER PO STA (02:55)
== END 2021-09-18 04:05 | disposition home or self-care (01) ==
LOC: JD.ED 01:43
DX: M54.6 Pain in thoracic spine (principal); E78.00 Pure hypercholesterolemia, unspecified; I10 Essential (primary) hypertension; K21.9 Gastro-esophageal reflux disease without esophagitis; J44.9 Chronic obstructive pulmonary disease, unspecified; E11.9 Type 2 diabetes mellitus without complications; E66.9 Obesity, unspecified; F17.210 Nicotine dependence, cigarettes, uncomplicated; Z68.32 Body mass index [BMI] 32.0-32.9, adult; Z79.899 Other long term (current) drug therapy; Z79.84 Long term (current) use of oral hypoglycemic drugs
CPT/HCPCS: 72070; 99283; A9270; 99284

== ENCOUNTER 2022-03-17 23:24 | Emergency (ER) | payer MEDICARE, BC ==
[2022-03-18 00:02] VITALS: BP 126/84; PULSE 62
[2022-03-18] MEDS ORDERED: Acetaminophen/HYDROcodone 325-5 MG Tab PO ONE (00:59)
== END 2022-03-18 03:41 | disposition home or self-care (01) ==
LOC: JD.ED 23:24
DX: M54.50 Low back pain, unspecified (principal); J45.909 Unspecified asthma, uncomplicated; E78.00 Pure hypercholesterolemia, unspecified; I10 Essential (primary) hypertension; E11.9 Type 2 diabetes mellitus without complications; F17.210 Nicotine dependence, cigarettes, uncomplicated; E66.9 Obesity, unspecified; Z68.32 Body mass index [BMI] 32.0-32.9, adult; Z79.899 Other long term (current) drug therapy; Z79.84 Long term (current) use of oral hypoglycemic drugs; Z90.49 Acquired absence of other specified parts of digestive tract
CPT/HCPCS: 72100; 99283; A9270

== ENCOUNTER 2022-05-16 17:00 | Emergency (ER) | payer MEDICARE, BC ==
[2022-05-16 17:43] VITALS: BP 112/61; PULSE 75
[2022-05-16] MEDS ORDERED: Sodium Chloride 0.9% 10 ML Syringe FLUSH PRN (19:22)
[2022-05-16] MEDS ORDERED: Ketorolac 15 MG/ML SDV IVPUSH ONE (19:23)
[2022-05-16] MEDS ORDERED: HYDROmorphone 0.5 MG/0.5 ML Syringe IVPUSH ONE (19:24)
[2022-05-16 20:33] LABS: ESTIMATED GFR 72 mL/min (>60)
[2022-05-16] MEDS ORDERED: Sodium Chloride 0.9% 10 ML Syringe FLUSH ONE (20:41)
[2022-05-16] MEDS ORDERED: Iopamidol 755 Mg/ML 100 ML Bottle IVPUSH ONE (20:41)
== END 2022-05-16 22:27 | disposition home or self-care (01) ==
LOC: JD.ED 17:00
DX: S22.050A Wedge compression fracture of T5-T6 vertebra, initial encounter for closed fracture (principal); E78.00 Pure hypercholesterolemia, unspecified; I10 Essential (primary) hypertension; K21.9 Gastro-esophageal reflux disease without esophagitis; J44.9 Chronic obstructive pulmonary disease, unspecified; E11.9 Type 2 diabetes mellitus without complications; E66.9 Obesity, unspecified; F17.210 Nicotine dependence, cigarettes, uncomplicated; Z68.31 Body mass index [BMI] 31.0-31.9, adult
CPT/HCPCS: 36415; 72129; 80053; 85025; 85652; 86140; 96374; 96375; 99284; J1170; J1885; J3490; Q9967; 99283

== ENCOUNTER 2024-01-31 11:36 | Emergency (ER) | payer MEDICARE, BC ==
[2024-01-31 11:59] VITALS: BP 118/69; PULSE 65
[2024-01-31 12:35] LABS: BASOPHILS PERCENT AUTO 0.4 % (0.0-1.0); EOSINOPHILS ABSOLUTE AUTO 0.2 K/mm3 (0.0-0.4); HEMATOCRIT 41.6 % (42.0-52.0); HEMOGLOBIN 13.3 gm/dl (14.0-18.0); IMMATURE GRAN ABSOLUTE AUTO 0.05 K/mm3 (0.00-0.05); IMMATURE GRAN PERCENT AUTO 0.7 % (0.0-0.4); LYMPHOCYTES PERCENT AUTO 13.2 % (24.0-44.0); MEAN CORPUSCULAR HEMOGLOBIN 29.1 pg (28.0-32.0); MEAN PLATELET VOLUME 10.8 fl (9.4-12.4); MONOCYTES ABSOLUTE AUTO 0.5 K/mm3 (0.0-0.8); MONOCYTES PERCENT AUTO 6.5 % (0.0-8.0); NEUTROPHILS ABSOLUTE AUTO 5.8 K/mm3 (1.8-7.7); NEUTROPHILS PERCENT AUTO 77.2 % (41.0-71.0); PLATELET COUNT,PLT 114 K/mm3 (150-400); RED BLOOD CELL COUNT 4.57 M/mm3 (4.52-5.90); WHITE BLOOD CELL COUNT,WBC 7.51 K/mm3 (3.9-11.3)
[2024-01-31 12:55] LABS: INR 0.95; PROTHROMBIN TIME 10.1 SECONDS (9.7-12.0)
[2024-01-31 12:56] LABS: PTT,PARTIAL THROMBOPLSTIN TIME 24.7 SECONDS (21.7-31.4)
[2024-01-31 13:08] LABS: A/G RATIO 1.1 (1-2); ALBUMIN 3.8 g/dl (3.4-5.0); ANION GAP 8.6 (5-15); BILIRUBIN TOTAL 0.6 mg/dL (0.2-1.0); C-REACTIVE PROTEIN 0.6 mg/dL (<0.30); CALCIUM 9.3 mg/dL (8.5-10.1); EST CRCL DRUG DOSING (CG) 73.29 mL/min; MAGNESIUM 1.6 mg/dL (1.8-2.4); POTASSIUM,K 4.6 mEq/L (3.5-5.1); PROTEIN TOTAL,TP 7.2 g/dl (6.4-8.2)
[2024-01-31 13:09] LABS: LACTIC ACID 1.4 mmol/L (0.4-2.0)
[2024-01-31] MEDS: Sodium Chloride 0.9% 1,000 ML IV SCH (13:11)
[2024-01-31] MEDS: Metoclopramide 10 MG/2 ML SDV IVPUSH ONE (13:12)
[2024-01-31] MEDS: Heparin Sodium 5,000 Units/ML Vial IVPUSH ONE (13:12)
[2024-01-31] MEDS: HYDROmorphone 0.5 MG/0.5 ML Syringe IVPUSH ONE (13:12)
[2024-01-31] MEDS: Heparin Sodium/D5W 250 ML IV SCH (13:19)
[2024-01-31 14:04] LABS: SLIDE REVIEW ABNORMAL SMEAR
[2024-01-31 14:10] LABS: HEMOGLOBIN A1C 6.4 %
== END 2024-01-31 14:03 ==
LOC: JD.ED 11:36
DX: E11.51 Type 2 diabetes mellitus with diabetic peripheral angiopathy without gangrene (principal); I73.9 Peripheral vascular disease, unspecified; I74.3 Embolism and thrombosis of arteries of the lower extremities; F17.218 Nicotine dependence, cigarettes, with other nicotine-induced disorders; I10 Essential (primary) hypertension; E78.00 Pure hypercholesterolemia, unspecified; J44.89 Other specified chronic obstructive pulmonary disease; E11.42 Type 2 diabetes mellitus with diabetic polyneuropathy; F17.210 Nicotine dependence, cigarettes, uncomplicated; Z90.49 Acquired absence of other specified parts of digestive tract; Z79.51 Long term (current) use of inhaled steroids; Z79.84 Long term (current) use of oral hypoglycemic drugs; Z79.899 Other long term (current) drug therapy
CPT/HCPCS: 36415; 71045; 80053; 82550; 83036; 83605; 83735; 83880; 85025; 85379; 85610; 85730; 86140; 93005; 96365; 96375; 99285; J1171; J1644; J2765; J7030; 93010

== ENCOUNTER 2025-01-26 12:56 | Inpatient (IN) | payer MEDICARE, BC ==
[2025-01-26] MEDS ORDERED: Sodium Chloride 0.9% 10 ML Syringe FLUSH PRN (13:36)
[2025-01-26 13:50] LABS: BASOPHILS ABSOLUTE AUTO 0.0 K/mm3 (0.0-0.2); BASOPHILS PERCENT AUTO 0.2 % (0.0-1.0); EOSINOPHILS ABSOLUTE AUTO 0.3 K/mm3 (0.0-0.4); EOSINOPHILS PERCENT AUTO 2.1 % (0.0-6.0); IMMATURE GRAN ABSOLUTE AUTO 0.13 K/mm3 (0.00-0.05); IMMATURE GRAN PERCENT AUTO 1.0 % (0.0-0.4); LYMPHOCYTES ABSOLUTE AUTO 1.1 K/mm3 (1.0-4.8); LYMPHOCYTES PERCENT AUTO 8.9 % (24.0-44.0); MEAN PLATELET VOLUME 10.9 fl (9.4-12.4); MONOCYTES ABSOLUTE AUTO 1.1 K/mm3 (0.0-0.8); MONOCYTES PERCENT AUTO 8.6 % (0.0-8.0); NEUTROPHILS ABSOLUTE AUTO 9.9 K/mm3 (1.8-7.7); NEUTROPHILS PERCENT AUTO 79.2 % (41.0-71.0); NRBC ABSOLUTE 0.00 (0.00-0.02); NRBC PERCENT 0.0 % (0.0-0.2); PLATELET COUNT,PLT 188 K/mm3 (150-400); RED BLOOD CELL COUNT 4.61 M/mm3 (4.52-5.90); WHITE BLOOD CELL COUNT,WBC 12.52 K/mm3 (3.9-11.3)
[2025-01-26 14:07] LABS: INR 1.02
[2025-01-26 14:08] LABS: PTT,PARTIAL THROMBOPLSTIN TIME 25.2 SECONDS (21.7-31.4)
[2025-01-26 14:13] LABS: A/G RATIO 1.0 (1-2); ALANINE AMINOTRANSFERASE,ALT 16.0 U/L (16-63); ASPARTATE AMNIOTRANSFERASE,AST 16.0 U/L (15-37); BILIRUBIN TOTAL 0.8 mg/dL (0.2-1.0); CARBON DIOXIDE,CO2 35.0 mEq/L (21-32); CHLORIDE,CL 97.0 mEq/L (98-107); CREATINE KINASE,CK 55.0 U/L (39-308); EST CRCL DRUG DOSING (CG) 18.52 mL/min; ESTIMATED GFR 16.0 mL/min (>60); GLUCOSE RANDOM 128.0 mg/dL (70-99); POTASSIUM,K 4.7 mEq/L (3.5-5.1); PROTEIN TOTAL,TP 7.0 g/dl (6.4-8.2); SODIUM,NA 137.0 mEq/L (136-145)
[2025-01-26 14:42] LABS: LACTIC ACID 2.8 mmol/L (0.4-2.0)
[2025-01-26 14:44] LABS: BLOOD UREA NITROGEN,BUN 75.0 mg/dL (7-18); CREATININE 3.7 mg/dL (0.7-1.3)
[2025-01-26] MEDS ORDERED: 50% Dextrose in Water 50 ML Syringe IVPUSH PRN (19:33)
[2025-01-26 20:06] LABS: LACTATE DEHYDROGENASE,LDH 202.0 U/L (85-227)
[2025-01-26] MEDS: Insulin Lispro 100 Unit/ML 3 ML KwikPen SUBCUT SCH (20:22)
[2025-01-26 22:23] LABS: APPEARANCE,URINE CLEAR (Clear); GLUCOSE,URINE NEGATIVE (Negative); OCCULT BLOOD,URINE TRACE-INTACT (Negative)
[2025-01-26 22:28] LABS: EPITHELIAL CELLS,URINE 0-5 /hpf (0-5)
[2025-01-27] MEDS: cefTRIAXone 1 GM in Water For Injection, Sterile 10 ML IVPUSH ONE (03:47)
[2025-01-27 04:45] LABS: BASOPHILS ABSOLUTE AUTO 0.0 K/mm3 (0.0-0.2); BASOPHILS PERCENT AUTO 0.4 % (0.0-1.0); EOSINOPHILS ABSOLUTE AUTO 0.3 K/mm3 (0.0-0.4); EOSINOPHILS PERCENT AUTO 3.4 % (0.0-6.0); IMMATURE GRAN ABSOLUTE AUTO 0.06 K/mm3 (0.00-0.05); IMMATURE GRAN PERCENT AUTO 0.8 % (0.0-0.4); LYMPHOCYTES ABSOLUTE AUTO 0.9 K/mm3 (1.0-4.8); LYMPHOCYTES PERCENT AUTO 11.7 % (24.0-44.0); MEAN PLATELET VOLUME 10.3 fl (9.4-12.4); MONOCYTES ABSOLUTE AUTO 0.7 K/mm3 (0.0-0.8); MONOCYTES PERCENT AUTO 9.1 % (0.0-8.0); NEUTROPHILS ABSOLUTE AUTO 5.4 K/mm3 (1.8-7.7); NEUTROPHILS PERCENT AUTO 74.6 % (41.0-71.0); NRBC ABSOLUTE 0.00 (0.00-0.02); NRBC PERCENT 0.0 % (0.0-0.2); PLATELET COUNT,PLT 135 K/mm3 (150-400); RED BLOOD CELL COUNT 3.70 M/mm3 (4.52-5.90); WHITE BLOOD CELL COUNT,WBC 7.25 K/mm3 (3.9-11.3)
[2025-01-27 05:09] LABS: A/G RATIO 0.8 (1-2); ALANINE AMINOTRANSFERASE,ALT 9.0 U/L (16-63); ASPARTATE AMNIOTRANSFERASE,AST 11.0 U/L (15-37); BILIRUBIN TOTAL 0.6 mg/dL (0.2-1.0); BLOOD UREA NITROGEN,BUN 56.0 mg/dL (7-18); CARBON DIOXIDE,CO2 32.0 mEq/L (21-32); CHLORIDE,CL 102.0 mEq/L (98-107); CREATININE 2.1 mg/dL (0.7-1.3); EST CRCL DRUG DOSING (CG) 34.39 mL/min; ESTIMATED GFR 33.0 mL/min (>60); GLUCOSE RANDOM 101.0 mg/dL (70-99); POTASSIUM,K 4.4 mEq/L (3.5-5.1); PROTEIN TOTAL,TP 5.6 g/dl (6.4-8.2); SODIUM,NA 140.0 mEq/L (136-145)
[2025-01-27 10:22] LABS: CORONAVIRUS COVID-19 NAA NEGATIVE (NEGATIVE); INFLUENZA A NAA NEGATIVE (NEGATIVE); RESPIRATORY SYNCYTIAL VIR NAA NEGATIVE (NEGATIVE)
[2025-01-28 07:31] LABS: BASOPHILS ABSOLUTE AUTO 0.0 K/mm3 (0.0-0.2); BASOPHILS PERCENT AUTO 0.4 % (0.0-1.0); EOSINOPHILS ABSOLUTE AUTO 0.2 K/mm3 (0.0-0.4); EOSINOPHILS PERCENT AUTO 3.5 % (0.0-6.0); IMMATURE GRAN ABSOLUTE AUTO 0.06 K/mm3 (0.00-0.05); IMMATURE GRAN PERCENT AUTO 0.9 % (0.0-0.4); LYMPHOCYTES ABSOLUTE AUTO 0.9 K/mm3 (1.0-4.8); LYMPHOCYTES PERCENT AUTO 13.7 % (24.0-44.0); MEAN PLATELET VOLUME 10.8 fl (9.4-12.4); MONOCYTES ABSOLUTE AUTO 0.7 K/mm3 (0.0-0.8); MONOCYTES PERCENT AUTO 9.9 % (0.0-8.0); NEUTROPHILS ABSOLUTE AUTO 4.9 K/mm3 (1.8-7.7); NEUTROPHILS PERCENT AUTO 71.6 % (41.0-71.0); NRBC ABSOLUTE 0.00 (0.00-0.02); NRBC PERCENT 0.0 % (0.0-0.2); PLATELET COUNT,PLT 139 K/mm3 (150-400); RED BLOOD CELL COUNT 3.95 M/mm3 (4.52-5.90); WHITE BLOOD CELL COUNT,WBC 6.87 K/mm3 (3.9-11.3)
[2025-01-28 07:58] LABS: A/G RATIO 0.8 (1-2); ALANINE AMINOTRANSFERASE,ALT 13.0 U/L (16-63); ASPARTATE AMNIOTRANSFERASE,AST 15.0 U/L (15-37); BILIRUBIN TOTAL 0.5 mg/dL (0.2-1.0); CARBON DIOXIDE,CO2 32.0 mEq/L (21-32); CHLORIDE,CL 106.0 mEq/L (98-107); CREATININE 1.1 mg/dL (0.7-1.3); EST CRCL DRUG DOSING (CG) 65.65 mL/min; ESTIMATED GFR 71.0 mL/min (>60); GLUCOSE RANDOM 113.0 mg/dL (70-99); POTASSIUM,K 4.2 mEq/L (3.5-5.1); PROTEIN TOTAL,TP 5.9 g/dl (6.4-8.2); SODIUM,NA 139.0 mEq/L (136-145)
[2025-01-28 08:14] LABS: BLOOD UREA NITROGEN,BUN 24.0 mg/dL (7-18)
[2025-01-28 11:45] VITALS: BP 107/60; PULSE 65
== END 2025-01-28 12:55 | disposition home or self-care (01) | DRG 683 ==
LOC: JD.ED 12:56 → JD.ICU 19:29 → JD.MS 01-27 18:50
PROVIDERS: ADMIT Family Medicine; ATTEND Family Medicine
PROC: 0T9B70Z Drainage of Bladder with Drainage Device, Via Natural or Artificial Opening (ICD-10-PCS; 2025-01-26)
PROC: 3E03329 Introduction of Other Anti-infective into Peripheral Vein, Percutaneous Approach (ICD-10-PCS; principal; 2025-01-27)
DX: N17.9 Acute kidney failure, unspecified (principal); E87.20 Acidosis, unspecified; E86.0 Dehydration; I10 Essential (primary) hypertension; E11.9 Type 2 diabetes mellitus without complications; F17.200 Nicotine dependence, unspecified, uncomplicated; E78.00 Pure hypercholesterolemia, unspecified; Z88.0 Allergy status to penicillin; E11.40 Type 2 diabetes mellitus with diabetic neuropathy, unspecified; H54.7 Unspecified visual loss; J44.89 Other specified chronic obstructive pulmonary disease; M81.0 Age-related osteoporosis without current pathological fracture; M19.90 Unspecified osteoarthritis, unspecified site; F17.210 Nicotine dependence, cigarettes, uncomplicated; I95.9 Hypotension, unspecified; K21.9 Gastro-esophageal reflux disease without esophagitis; R63.0 Anorexia; Z87.01 Personal history of pneumonia (recurrent); Z88.1 Allergy status to other antibiotic agents; Z99.81 Dependence on supplemental oxygen; Z79.899 Other long term (current) drug therapy; Z87.81 Personal history of (healed) traumatic fracture; Z85.46 Personal history of malignant neoplasm of prostate; Z86.16 Personal history of COVID-19; Z90.49 Acquired absence of other specified parts of digestive tract; Z90.89 Acquired absence of other organs; Z98.890 Other specified postprocedural states; Z68.29 Body mass index [BMI] 29.0-29.9, adult; Z79.84 Long term (current) use of oral hypoglycemic drugs; Z79.01 Long term (current) use of anticoagulants; Z79.51 Long term (current) use of inhaled steroids
CPT/HCPCS: 36415; 51702; 51798; 71045; 71045-26; 74176; 74176-26; 80053; 81001; 82550; 82947; 83605; 83615; 83735; 84300; 84550; 85025; 85610; 85730; 87040; 87637; 93005; 94761; 96360; 96361; 99285-25; A9270-GY; J0696; J7030